=== PATIENT | male | born 1995 | race Caucasian/White ===

== ENCOUNTER 2019-09-05 17:55 | Emergency (ER) | payer OTHER, SELFPAY ==
[2019-09-05 18:09] VITALS: BP 108/88; PULSE 106; RESP 20; TEMP 37.7; O2SAT 98
--- NOTE | 2019-09-05 18:18 | ED.GENADULT ---
HPI - General Adult General Chief complaint: Upper Respiratory Infection Stated complaint: vomiting/diarrhea/fever/lower back pain History of Present Illness HPI narrative: Patient woke up this morning with body pain and aches with some nausea and diarrhea and headache and not feeling well,. Patient denies checking his temp. Related Data Allergies Allergy/AdvReac Type Severity Reaction Status Date / Time No Known Allergies Allergy Mild Verified 09/05/19 18:15 Review of Systems Review of Systems: All systems reviewed & are unremarkable except as noted in HPI and below PMFSH Comments Past medical , social and family history as the rn has documented . Exam Const: General: no acute distress HENMT: Head: normal to inspection Eyes: Pupils: Equal, round and reactive pupils present Chest: Chest palpation & inspection: normal inspection of the chest Resp: Effort & Inspection: normal respiratory effort GI: Other: Denies any abdominal pain with palation . complains of back pain per patient from laying around all day. Neuro: General: patient oriented x3 Other: Nausea with some vomiting and feeling warm c/o tactile fever Extrem: General: normal to inspection Psych: Mental Status: mental status grossly normal Other: Patient did not talk much mother did all the talking and when he attempted she interrupted and spoke for him. MOm would contradict a lot of what was being told by the patient. Course Vital Signs Vital signs: Vital Signs Temperature 99.8 F H 09/05/19 18:09 Pulse Rate 106 H 09/05/19 18:09 Respiratory Rate 20 09/05/19 18:09 Blood Pressure 108/88 09/05/19 18:09 Pulse Oximetry 98 09/05/19 18:09 Temperature 99.8 F H 09/05/19 18:09 Pulse Rate 106 H 09/05/19 18:09 Respiratory Rate 20 09/05/19 18:09 Blood Pressure 108/88 09/05/19 18:09 Pulse Oximetry 98 09/05/19 18:09 Medical Decision Making Vital Signs Vital Signs: Vital Signs Temperature 99.8 F H 09/05/19 18:09 Pulse Rate 106 H 09/05/19 18:09 Respiratory Rate 20 09/05/19 18:09 Blood Pressure 108/88 09/05/19 18:09 Pulse Oximetry 98 09/05/19 18:09 Temperature 99.8 F H 09/05/19 18:09 Pulse Rate 106 H 09/05/19 18:09 Respiratory Rate 20 02/07/20 18:09 Blood Pressure 108/88 09/05/19 18:09 Pulse Oximetry 98 09/05/19 18:09 Lab Data Labs: Influenza A Screen Negative Reference Range: Negative Influenza B Screen Negative Reference Range: Negative Discharge Plan Discharge Clinical Impression: Influenza, Viral infection Patient Disposition: Home, Self-Care Condition: Stable Instructions: Antibiotic Form, Influenza (ED), Acute Nausea and Vomiting (ED) Prescriptions: New oseltamivir [Tamiflu] 6 mg/mL suspension for reconstitution 75 mg PO Q12H 5 Days Qty: 125 RF: 0 ondansetron 4 mg tablet,disintegrating 4 mg PO Q8H PRN (Reason: nausea and vomiting) Qty: 10 RF: 0 Follow-up/Referrals: Judith,Chito Jenkins MD [Primary Care Provider] - Stand Alone Forms: Work/School Release IP Time of Disposition: 18:38 Discharge Date/Time: 09/05/19 18:52
--- NOTE | 2019-09-05 18:19 | PC.NURSE ---
states he doesn't know if he had a fever today, he did not check it. vomited a couple times today and had a couple episodes of loose stools today.
== END 2019-09-05 18:52 | disposition home or self-care (01) ==
PROVIDERS: Emergency Provider Nurse Practitioner Family; PCP Internal Medicine
DX: J11.1 Influenza due to unidentified influenza virus with other respiratory manifestations (principal); B34.9 Viral infection, unspecified
CPT/HCPCS: 87804; 99213; G0463

== ENCOUNTER 2021-06-21 10:25 | Emergency (ER) | payer OTHER, SELFPAY ==
[2021-06-21 10:46] VITALS: BP 133/82; PULSE 77; RESP 16; TEMP 36.3; O2SAT 99
--- NOTE | 2021-06-21 11:27 | ED.SKABFB ---
HPI - Skin/Abscess/Foreign Bdy General Chief complaint: Skin/Abscess/Foreign Body Stated complaint: Rash,Upset Stomach Time Seen by Provider: 06/21/21 11:20 Source: patient and RN notes reviewed Mode of arrival: ambulatory Limitations: no limitations History of Present Illness HPI narrative: Fer is a 26-year-old male patient who ambulated into the [facility] today. Patient states he had nausea this a.m. about 6:00 AM. Patient states he got up went to work was sent home due to the nausea. Patient states he vomited once it was all acid . Patient came home took children's Tylenol 1 tablet. Within 10 minutes developed a rash all over his body. The rash covers his shoulder and belly. Patient took 25 of Benadryl by mouth immediately after he noticed the rash. Patient the rash continues and itches, patient denies any nausea or vomiting at present MD complaint: rash Related Data Allergies Allergy/AdvReac Type Severity Reaction Status Date / Time No Known Allergies Allergy Mild Verified 09/05/19 18:15 Review of Systems Review of Systems: CONSTITUTIONAL: Denies body aches, fever, chills, or sweats. EYES: Denies visual changes, redness, or discharge. ENT: Denies rhinorrhea, congestion, sore throat, or otalgia. CARDIOVASCULAR: Denies chest pain, palpitations, or edema. RESPIRATORY: Denies cough or dyspnea. GASTROINTESTINAL: Denies abdominal pain, + nausea, vomiting, GENITOURINARY: Denies dysuria or hematuria. SKIN: Denies itching, or wounds; + rash MUSCULOSKELETAL: Denies back pain, joint pain, or myalgia. NEUROLOGIC: Denies headache, numbness, tingling, or weakness. PSYCH: Denies depression or anxiety. All systems reviewed & are unremarkable except as noted in HPI and below PMFSH Comments At time of signature, I have reviewed and agree with nursing past medical, surgical, social and family history unless otherwise noted. Please see nursing chart for further information. There is no relevant family history pertinent to the presenting complaint Exam Narrative: GENERAL: Well-appearing, well-nourished, and in no acute distress. HEAD: Normocephalic, atraumatic. EYES: EOMI. No redness or drainage. Conjunctivae normal. ENT: Mucous membranes pink and moist. Nares clear. No rhinorrhea. . NECK: Normal AROM. Supple. No lymphadenopathy. CHEST: No respiratory distress. Clear to auscultation. ABDOMEN: Soft, nontender, nondistended, normal active bowel sounds. MUSCULOSKELETAL: No bony tenderness. EXTREMITIES: Normal range of motion. No edema. SKIN: Warm, dry, no rash. Capillary refill normal. Normal skin turgor; fine macular rash covering abdomen, back, shoulders, and arms. NEURO: No focal deficits. Alert and oriented x3. Gait steady. PSYCH: Normal affect. No signs of depression or anxiety. Course Vital Signs Vital signs: Vital Signs Temperature 36.3 C L 06/21/21 10:46 Pulse Rate 77 06/21/21 10:46 Respiratory Rate 16 06/21/21 10:46 Blood Pressure 133/82 06/21/21 10:46 Pulse Oximetry 99 06/21/21 10:46 Temperature 36.3 C L 06/21/21 10:46 Pulse Rate 77 06/21/21 10:46 Respiratory Rate 16 06/21/21 10:46 Blood Pressure 133/82 06/21/21 10:46 Pulse Oximetry 99 06/21/21 10:46 Reviewed. Pt has been instructed to follow up with his PCP regarding his elevated blood pressure today. MDM - Skin/Abscess/Foreign Bdy MDM Narrative Medical decision making narrative: Patient has a macular rash throughout his abdomen back shoulders and arms. Patient was informed to take Zyrtec daily and continue with the Benadryl. Patient states the rash is getting better. Differential Diagnosis Differential diagnosis: Likely viral exanthem, allergic reaction to drug and contact dermatitis Medical Records Attestation: I reviewed the patient's medical records. Critical Care Time Critical Care Time Critical Care Time: No Discharge Plan Discharge Clinical Impression: Rash Patient Disposition: Home, Self-Care
== END 2021-06-21 11:39 | disposition home or self-care (01) ==
PROVIDERS: Emergency Provider Nurse Practitioner Family; PCP Internal Medicine
DX: R21 Rash and other nonspecific skin eruption (principal)
CPT/HCPCS: 99211; G0463

== ENCOUNTER 2023-02-24 10:38 | Emergency (ER) | payer OTHER, SELFPAY ==
[2023-02-24 10:47] VITALS: BP 131/81; PULSE 50; RESP 14; TEMP 36.3; O2SAT 100
--- NOTE | 2023-02-24 11:00 | ED.SKABFB ---
HPI - Skin/Abscess/Foreign Bdy General Chief complaint: Skin/Abscess/Foreign Body Stated complaint: Rt Jaw Pain,Cold Sore Rt Lower Lip Time Seen by Provider: 02/24/23 10:50 Source: patient Mode of arrival: ambulatory Limitations: no limitations History of Present Illness HPI narrative: Fer is a 27-year-old male patient presenting to the clinic today with complaints of right jaw pain and a cold sore to the right lower lip times 2-3 days. Symptoms started with a cold for to the right lower lip and it has gotten into his right jaw. He feels as though his right jaw is swollen and painful. Also has some painful lesions under his tongue on the soft mucosal Related Data Allergies Allergy/AdvReac Type Severity Reaction Status Date / Time acetaminophen [From Tylenol] AdvReac Mild Hives Verified 02/24/23 11:01 Review of Systems Review of Systems: Pertinent positives per HPI. Patient denies any fever, chills, rash, headache, visual changes, dizziness, cough, runny nose, sore throat, shortness of breath, chest pain, palpitations, nausea, vomiting, diarrhea, constipation, abdominal pain, or any urinary issues. PMFSH Comments At the time of my signature, I reviewed and agree with the nursing past medical, surgical, social, and family history. There is no relevant family history pertinent to the patient complaint. Exam Narrative: General: Well-developed, well nourished, in no apparent distress Head: Normocephalic, atraumatic Eyes: Pupils equally round and reactive to light bilaterally, EOM intact, sclera and conjunctive clear, no discharge, lids normal Ears: TMs intact and clear, ear canals clear, no drainage, grossly hearing normal. Nose: Nares patent, no discharge, no inflammation, no sinus tenderness. Mouth: Oropharynx with lesions to the soft mucosa under the the right side of tongue, has 3 vesicular lesion to the right lower lip better painful and tender to palpation, no masses, good dentition, MMM. Tenderness to palpate over the proximal right jaw Neck: Supple, trachea midline, no enlargement of anterior or posterior cervical nodes, no thyroid masses or goiter palpable. Cardio: Regular rate and rhythm, s1 and s2 normal, no murmur appreciated. Resp: Clear to auscultation bilaterally anteriorly and posteriorly, no rhonchi, rales, wheezing or rubs Course Course Emergency Course: Portions of this record may have been created with voice recognition software. Level of Care: Express Care Visit Vital Signs Vital signs: Vital Signs Temperature 36.3 C L 02/24/23 10:47 Pulse Rate 50 L 02/24/23 10:47 Respiratory Rate 14 02/24/23 10:47 Blood Pressure 131/81 02/24/23 10:47 Pulse Oximetry 100 02/24/23 10:47 Oxygen Delivery Room Air 02/24/23 10:47 Temperature 36.3 C L 02/24/23 10:47 Pulse Rate 50 L 02/24/23 10:47 Respiratory Rate 14 02/24/23 10:47 Blood Pressure 131/81 02/24/23 10:47 Pulse Oximetry 100 02/24/23 10:47 Oxygen Delivery Room Air 02/24/23 10:47 Vital signs reviewed MDM - Skin/Abscess/Foreign Bdy MDM Narrative Medical decision making narrative: At the time of visit patient is resting comfortably on exam table. Patient is concerned about infection. He is having some soreness and swelling in his right lower jaw. Will cover patient with Keflex for infection and also give him acyclovir. Patient states he is only able to take liquid medications. Supportive measures were discussed with the patient he voiced understanding discharge instructions and agrees to treatment plan. Differential Diagnosis Differential diagnosis: Likely abscess of skin or subcutaneous tissue, urticaria, herpes zoster, cellulitis, eczema, insect bites, impetigo, contact dermatitis and other (Cold sore, lymphadenitis) Discharge Plan Discharge Clinical Impression: Cold sore Patient Disposition: Home, Self-Care Condition: Stable Instructions: Antibiotic Form Additional Instructions:
== END 2023-02-24 11:08 | disposition home or self-care (01) ==
PROVIDERS: Emergency Provider Nurse Practitioner Family; PCP Internal Medicine
DX: B00.1 Herpesviral vesicular dermatitis (principal)
CPT/HCPCS: 99213; G0463

== ENCOUNTER 2023-07-31 18:15 | Emergency (ER) | payer OTHER, SELFPAY ==
[2023-07-31 19:08] VITALS: BP 136/83; PULSE 76; RESP 16; TEMP 35.9; O2SAT 100
--- NOTE | 2023-07-31 19:19 | ED.URI ---
HPI - URI/Sore Throat General Chief Complaint: Upper Respiratory Infection Stated Complaint: sorethroat Time Seen by Provider: 07/31/23 19:19 Source: patient, RN notes reviewed and old records reviewed Mode of arrival: ambulatory Limitations: no limitations History of Present Illness HPI Narrative: 28-year-old male presents to the [facility] with complaints of a sore throat since 11:00 a.m. this morning. Has taken ibuprofen Patient reports that last night he ate pizza which caused him some acid reflux issues. Has a history of GERD. Took when omeprazole this morning Patient denies any other symptoms other than a sore throat. Patient states that his dad want to his doctor today because he was not feeling well was tested for flu and COVID which he reports his dad was negative. Onset (ago): hour(s) (8) Related Data Home Medications Medication Instructions Recorded Confirmed No Home Medications 07/31/23 07/31/23 Allergies Allergy/AdvReac Type Severity Reaction Status Date / Time acetaminophen [From Tylenol] AdvReac Mild Hives Verified 07/31/23 19:18 Review of Systems Review of Systems: All systems reviewed & are unremarkable except as noted in HPI and below Constitutional: Constitutional: Reports no additional constitutional complaints Eyes: Eyes: Reports no additional eye complaints ENT: Reports as per HPI and Reports sore throat Cardiovascular: Cardiovascular: Reports no additional cardiovascular complaints, Denies chest pain and Denies dyspnea Respiratory: Respiratory: Reports no additional respiratory complaints, Denies chest congestion, Denies cough and Denies dyspnea Gastrointestinal: Gastrointestinal: Reports no additional gastrointestinal complaints, Denies abdominal pain, Denies nausea and Denies vomiting Musculoskeletal: Musculoskeletal: Reports no additional musculoskeletal complaints Integumentary/Breasts: Skin/Breast: Reports system reviewed and no additional complaints, except as docu Neurologic: Reports system reviewed and no additional complaints, except as documented Psychiatric: Psychiatric: Reports no additional psychiatric complaints Allergic/Immunologic: Allergic/Immunologic: Reports no additional allergic/immunologic complaints PMFSH Past Medical History Medical History (Updated 08/02/23 @ 08:17 by Nurys Mackey APRN) H/O gastroesophageal reflux (GERD) Comments At the time of my signature, I reviewed and agree with the nursing past medical, surgical, social, and family history. There is no relevant family history pertinent to the patient complaint. Exam Const: General: cooperative, healthy appearing, comfortable, no acute distress, well developed, alert and well nourished Nutritional Appearance: well nourished Orientation/consciousness: patient oriented x3 Limitations: no limitations HENMT: Head: normal to inspection Ears: hearing grossly normal bilaterally, external ears normal, TM's normal bilaterally, EAC's normal, mastoids normal and no periauricular adenopathy Face/Nose/Sinus: Normal external nose present, Normal nares present, Normal nasal mucous membranes and turbinates present, normal facial exam and face symmetric Face and sinus: normal facial exam and face symmetric Mouth: Yes Normal oral and palatal mucosa present, Yes lip normal, Yes tongue normal and Yes moist mucous membranes Throat: posterior oropharynx normal, tonsils normal and uvula midline Eyes: General: appearance normal, both eyes and all related structures Alignment and Position: alignment normal Periorbital: periorbital findings normal Pupils: Equal, round and reactive pupils present EOM: EOMs intact bilaterally Neck: Neck: normal visual inspection, full ROM, no lymphadenopathy and no meningeal signs Chest: Chest palpation & inspection: normal inspection of the chest Resp: Effort & Inspection: normal respiratory effort and able to speak in complete sentences Auscultation: clear to auscultation bilate
== END 2023-07-31 19:31 | disposition home or self-care (01) ==
PROVIDERS: Emergency Provider Nurse Practitioner; PCP Internal Medicine
DX: J02.9 Acute pharyngitis, unspecified (principal); K21.9 Gastro-esophageal reflux disease without esophagitis
CPT/HCPCS: 87081; 87880; 99213; G0463

== ENCOUNTER 2024-01-30 10:12 | Emergency (ER) | payer OTHER, SELFPAY ==
[2024-01-30 10:21] VITALS: BP 143/94; PULSE 82; RESP 18; TEMP 36.2; O2SAT 97
--- NOTE | 2024-01-30 10:26 | ED.GENADULT ---
HPI - General Adult General Chief complaint: Skin/Abscess/Foreign Body Stated complaint: Allergic Reaction Time Seen by Provider: 01/30/24 10:30 Source: patient, RN notes reviewed and old records reviewed Mode of arrival: ambulatory Limitations: no limitations History of Present Illness HPI narrative: 28 year old male presents to express care with complaints of allergic reaction to what he believes was from Prilosec while he was at work today. Patient reports that he awoke this morning at 0500 with some bilateral lower abdominal pain which he has been having for several months saw PCP about 3 months ago for his stomach problems and had ultrasound done which was negative. Patient reports that he took Prilosec at 0800 and noted within the hour that he was having redness to his skin itching and sweating. He states that he left work to go home and on drive home felt some shortness of breath. He reports as soon as he was home he took some Benadryl which resolved the SOB. He states that he did have emesis x2 after he had been home for short interval. with no diarrhea. Patient reports that he ate fried chicken last night and went to bed shortly after eating. Patient reports that he has taken Prilosec before without any problems. Patient reports that redness is resolving still feels some mild generalized itching, denies any present dyspnea and reports no difficulty with swallowing. MD complaint: possible allergic reaction to Prilosec Onset (ago): hour(s) (around 0830) Severity: moderate Treatments prior to arrival: other (took Benadryl tabs X2) Related Data Allergies Allergy/AdvReac Type Severity Reaction Status Date / Time acetaminophen [From Tylenol] AdvReac Mild Hives Verified 01/30/24 10:31 Review of Systems Review of Systems: CONSTITUTIONAL: Denies fever, chills, or sweats. EYES: Denies visual changes, redness, or discharge. ENT: Denies rhinorrhea, congestion, sore throat, or otalgia. CARDIOVASCULAR: Denies chest pain, palpitations, or edema. RESPIRATORY: Denies cough or previous episode of SOB resolved GASTROINTESTINAL: Episode of bilateral abdominal pain early this morning, nausea, positive vomiting, no diarrhea. GENITOURINARY: Denies dysuria or hematuria. SKIN: Reports generalized redness of skin with itching and sweating which has decreased MUSCULOSKELETAL: Denies back pain, joint pain, or myalgia. NEUROLOGIC: Denies headache, numbness, or weakness. PSYCHIATRIC: Denies anxiety or depression.appears anxious All systems reviewed & are unremarkable except as noted in HPI and below PMFSH Past Medical History Medical History (Updated 01/30/24 @ 11:25 by Eugenie Botello NP) Bronchitis CVA (cerebral vascular accident) as Ear infection H/O gastroesophageal reflux (GERD) Mononucleosis Tonsillitis Surgical History Surgical History (Updated 01/30/24 @ 11:27 by Eugenie Botello NP) H/O tooth extraction Social History Social History (Updated 01/30/24 @ 11:16 by Eugenie Botello NP) Smoking status: Never smoker Alcohol intake: never Substance use: never Gender identity (if verbalized by the patient): Male Comments At time of signature, agree with nursing past medical, surgical, social and family history. There is no relevant family history pertinent to the presenting complaint Exam Narrative: GENERAL: Well-appearing, well-nourished, and in no acute distress. HEAD: Normocephalic, atraumatic. EYES: PERRLA and EOMI. ENT: Nares clear, no rhinorrhea or epistaxis. Mucous membranes moist.TM's with good light reflex bilaterally, throat pink with no swelling tonsil with some enlargement NECK: Supple. no lymphadenopathy CHEST: Clear to auscultation. No respiratory distress.no tachypnea or any retractions able to speak in full sentences, SAO2 97% on room air HEART: Regular rate and rhythm. No murmur heard. Normal peripheral pulses. ABDOMEN: Soft, nontender to palpation, nondistended, normal active bowel sounds.den
== END 2024-01-30 10:54 | disposition home or self-care (01) ==
PROVIDERS: Emergency Provider Registered Nurse; PCP Internal Medicine
DX: L23.3 Allergic contact dermatitis due to drugs in contact with skin (principal); T47.1X5A Adverse effect of other antacids and anti-gastric-secretion drugs, initial encounter; K21.9 Gastro-esophageal reflux disease without esophagitis; Z86.73 Personal history of transient ischemic attack (TIA), and cerebral infarction without residual deficits
CPT/HCPCS: 99213; G0463

== ENCOUNTER 2024-03-14 08:08 | Emergency (ER) | payer OTHER, SELFPAY ==
--- NOTE | 2024-03-14 08:18 | ED.URI ---
HPI - URI/Sore Throat General Chief Complaint: Upper Respiratory Infection Stated Complaint: sore throat , congestion , cough Time Seen by Provider: 03/14/24 08:18 Source: patient Mode of arrival: ambulatory Limitations: no limitations History of Present Illness HPI Narrative: Avis a 28-year-old male patient presenting to the clinic today with complaints of sore throat, cough, and congestion x4 days. He reports he was mowing the lawn on Sunday and gotten to some dust patches and thinks that he may have some allergies going on. Denies any known fever, chills, or body aches. MD elicited complaint: cough, sore throat and nasal congestion Related Data Home Medications Medication Instructions Recorded Confirmed No Home Medications 03/14/24 03/14/24 Allergies Allergy/AdvReac Type Severity Reaction Status Date / Time acetaminophen [From Tylenol] Allergy Mild Hives Verified 03/14/24 08:29 Review of Systems Review of Systems: Pertinent positives per HPI. Patient denies any fever, chills, rash, headache, visual changes, dizziness, shortness of breath, chest pain, palpitations, nausea, vomiting, diarrhea, constipation, abdominal pain, or any urinary issues. [facility] Past Medical History Medical History Bronchitis CVA (cerebral vascular accident) as infant Ear infection H/O gastroesophageal reflux (GERD) Mononucleosis Tonsillitis Surgical History Surgical History H/O tooth extraction Social History Social History Smoking status: Never smoker Alcohol intake: never Substance use: never Gender identity (if verbalized by the patient): Male Comments At the time of my signature, I reviewed and agree with the nursing past medical, surgical, social, and family history. There is no relevant family history pertinent to the patient complaint. Exam Narrative: General: Well-developed, well nourished, in no apparent distress Head: Normocephalic, atraumatic Eyes: Pupils equally round and reactive to light bilaterally, EOM intact, sclera and conjunctive clear, no discharge, lids normal Ears: TMs intact and congested, ear canals clear, no drainage, grossly hearing normal. Nose: Nares patent, clear nasal discharge, no inflammation, no sinus tenderness. Mouth: Oropharynx mildly red without lesions or masses, good dentition, MMM. Neck: Supple, trachea midline, no enlargement of anterior or posterior cervical nodes, no thyroid masses or goiter palpable. Cardio: Regular rate and rhythm, s1 and s2 normal, no murmur appreciated. Resp: Clear to auscultation bilaterally anteriorly and posteriorly, no rhonchi, rales, wheezing or rubs Course Course Emergency Course: Portions of this record may have been created with voice recognition software. Level of Care: Express Care Visit Vital Signs Vital signs: Vital signs reviewed MDM - URI/Sore Throat MDM Narrative Medical decision making narrative: At the time of visit patient is resting comfortably on the exam table. Patient appears to be nontoxic. Labs: COVID and strep test was negative in the clinic today. We will send strep for culture Plan: I suspect patient has URI/pharyngitis. Will send strep for culture. Supportive measures were discussed with the patient and they voiced understanding discharge instructions and agrees to treatment plan. Return precautions reviewed Differential Diagnosis Differential diagnosis: Likely upper respiratory infection, otitis media, sinusitis, viral infection, bronchitis, influenza, pharyngitis and other (COVID) Discharge Plan Discharge Clinical Impression: Upper respiratory infection Qualifiers: URI type: unspecified URI Qualified Code(s): J06.9 - Acute upper respiratory infection, unspecified Pharyngitis Qualifiers: Pharyngitis/tonsilli
[2024-03-14 08:29] VITALS: BP 125/71; PULSE 56; RESP 16; TEMP 36.2; O2SAT 98
[2024-03-14 08:53] LABS: EDSTREPNEGPOS1 Presumptive Negative
== END 2024-03-14 09:04 | disposition home or self-care (01) ==
PROVIDERS: Emergency Provider Nurse Practitioner Family; PCP Internal Medicine
DX: J06.9 Acute upper respiratory infection, unspecified (principal); J02.9 Acute pharyngitis, unspecified; Z20.822 Contact with and (suspected) exposure to COVID-19; K21.9 Gastro-esophageal reflux disease without esophagitis; Z86.73 Personal history of transient ischemic attack (TIA), and cerebral infarction without residual deficits
CPT/HCPCS: 87081; 87426; 87880; 99213; G0463